=== PATIENT | female | born 1945 | race Caucasian/White ===

== ENCOUNTER 2020-10-12 10:07 | Outpatient (CLI) | payer MEDICARE | END 2020-10-12 10:08 | disposition home or self-care (01) | LOC: BICRAD 10:07 | PROVIDERS: ATTEND Nurse Practitioner Family | DX: M25.541 Pain in joints of right hand (principal); M19.041 Primary osteoarthritis, right hand; M79.89 Other specified soft tissue disorders ==

== ENCOUNTER 2025-04-15 16:17 | Emergency (ER) | payer MEDICARE ==
[2025-04-15 17:41] LABS: #Basophils Less than 0.03 10x3/uL (0.0-0.2); #Eosinophils 0.09 10x3/uL (0.0-0.7); #Monocytes 0.53 10x3/uL (0.11-0.59); #Neutrophils 3.08 10x3/uL (1.40-6.50); %Basophils 0.2 % (0.0-1.0); %Eosinophils 1.5 % (0.0-10.0); %Lymphocytes 36.7 % (21.0-51.0); %Monocytes 9.0 % (0.0-10.0); %Neutrophils 52.4 % (42.0-75.0); Hematocrit 40.5 % (36.0-47.0); Hemoglobin 12.8 g/dL (12.0-16.0); Mean Corpuscular Hemoglobin 27.8 pg (27.0-31.0); Mean Corpuscular Volume 88.0 fL (78.0-98.0); Platelet Count 170 10x3/uL (130-400); Red Blood Cell (RBC) Count 4.60 mill/uL (4.20-5.40); White Blood Cell (WBC) Count 5.88 10x3/uL (4.8-10.8)
[2025-04-15 17:55] LABS: ALT (SGPT) 12 U/L (Less than 34); AST (SGOT) 22 U/L (11-34); Albumin 3.7 g/dL (3.1-4.5); Alkaline Phosphatase 74 U/L (40-110); Anion Gap 11 mmol/L (10-20); BUN (Urea Nitrogen) 14 mg/dL (9.8-20.1); Bilirubin, Total 0.5 mg/dL (0.3-1.2); Calc. Creatinine Clearance 0 mL/min (70-130); Calcium 9.4 mg/dL (7.8-10.44); Carbon Dioxide 29 mmol/L (23-31); Chloride 104 mmol/L (98-107); Globulin 3.0 g/dL (2.4-3.5); Glucose 85 mg/dL (83-110); Potassium 4.3 mmol/L (3.5-5.1); Sodium 140 mmol/L (136-145)
== END 2025-04-15 21:09 | disposition home or self-care (01) ==
LOC: ERS 16:17
DX: R00.2 Palpitations (principal); I10 Essential (primary) hypertension
CPT/HCPCS: 71046; 80053; 84484; 85025; 93005